=== PATIENT | male | born 1945 | race Caucasian/White ===

== ENCOUNTER 2019-09-29 07:05 | Inpatient (IN) ==
[2019-09-29] MEDS ORDERED: *HR* Propofol 200 MG/20 ML VIAL IVP ONE (07:08)
[2019-09-29] MEDS ORDERED: *HR* FentaNYL (PF) 100 MCG/2 ML VIAL ONE ×2 (07:09→08:26)
[2019-09-29] MEDS ORDERED: *HR* Rocuronium Bromide 50 MG/5 ML VIAL ONE (07:22)
[2019-09-29] MEDS ORDERED: Lidocaine -MPF 1% 5 ML AMPUL ONE (07:22)
[2019-09-29] MEDS ORDERED: Dexamethasone 4 MG/ML VIAL ONE (07:22)
[2019-09-29] MEDS ORDERED: Ondansetron 4 MG/2 ML VIAL ONE (07:22)
[2019-09-29] MEDS ORDERED: Famotidine 20 MG/2 ML VIAL IVP ONE (07:28)
[2019-09-29] MEDS ORDERED: Acetaminophen IV 1,000 MG/100 ML INFUS..BTL IVPB ONE (07:29)
[2019-09-29] MEDS ORDERED: Ringers Solution, Lactated 1,000 ML IVC SCH (07:30)
[2019-09-29] MEDS ORDERED: *HR* OxyCODONE Immed Rel 5 MG TABLET PO PRN (07:57)
[2019-09-29] MEDS ORDERED: Ondansetron 4 MG/2 ML VIAL IVP ONE (07:57)
[2019-09-29] MEDS ORDERED: *HR* Labetalol 20 MG/4 ML SYRINGE IVP PRN (07:57)
[2019-09-29] MEDS ORDERED: *HR* HYDROmorphone PF 0.5 MG/0.5 ML SYRINGE IVP PRN (07:57)
[2019-09-29] MEDS ORDERED: Heparin 1,000 UNITS/500 mL 500 ML ONE (08:08)
[2019-09-29] MEDS ORDERED: 0.9 % Sodium Chloride 500 ML IVC SCH (08:15)
[2019-09-29] MEDS ORDERED: CeFAZolin Syr 2,000MG/20 ML 2,000 MG/20 ML SYRINGE IVPB ONE (08:15)
[2019-09-29] MEDS ORDERED: Lidocaine -MPF 2% 2 ML VIAL ONE (08:16)
[2019-09-29] MEDS ORDERED: *HR* Belladonna Alkaloids/Opium 30 MG RECTAL SUPPOSITORY RC PRN (12:28)
[2019-09-29] MEDS ORDERED: Naloxone 0.4 MG/ML INJ IVP PRN (12:28)
[2019-09-29] MEDS ORDERED: Ondansetron 4 MG/2 ML VIAL IVP PRN (12:28)
[2019-09-29] MEDS: 0.9 % Sodium Chloride 500 ML IVC SCH (14:13)
[2019-09-29] MEDS: ceFAZolin 2,000 MG in 0.9 % Sodium Chloride 100 ML IVPB SCH (15:39)
[2019-09-29] MEDS: *HR* Heparin 5,000 UNIT/ML VIAL SQ SCH (15:41)
[2019-09-29] MEDS: Acetaminophen IV 1,000 MG/100 ML INFUS..BTL IVPB SCH ×2 (16:16→22:01)
[2019-09-30] MEDS: *HR* Heparin 5,000 UNIT/ML VIAL SQ SCH ×2 (01:44→08:43)
[2019-09-30] MEDS: 0.9 % Sodium Chloride 500 ML IVC SCH (01:44)
[2019-09-30] MEDS: ceFAZolin 2,000 MG in 0.9 % Sodium Chloride 100 ML IVPB SCH (01:50)
[2019-09-30] MEDS: Acetaminophen IV 1,000 MG/100 ML INFUS..BTL IVPB SCH (04:02)
[2019-09-30 05:06] LABS: Basophils % 0.3 %; Hematocrit 38.1 % (37.5-50.1); Hemoglobin 12.7 g/dL (12.9-16.9); Immature Granulocytes % 0.3 % (0-4); Lymphocytes # 1.3 K/mcL (0.6-4.6); Lymphocytes % 11.4 %; Mean Corpuscular HGB Conc 33.3 g/dL (31.6-35.5); Mean Corpuscular Hemoglobin 32.5 pg (28.0-33.3); Mean Corpuscular Volume 97.4 fL (83.0-100.0); Mean Platelet Volume 10.7 fL (9.4-12.4); Monocytes % 9.1 %; Neutrophils # 8.7 K/mcL (1.6-8.9); Platelet Count 301 K/mcL (140-400); Red Blood Count 3.91 M/mcL (4.19-5.50); Red Cell Distribution Width 15.6 % (11.5-14.5); Segmented Neutrophils % 78.9 %; White Blood Count 11.1 K/mcL (4.3-11.1)
[2019-09-30 07:29] VITALS: BP 141/85
== END 2019-09-30 10:37 | disposition home or self-care (01) | DRG 658 ==
LOC: SAMDAY 07:05 → 3ANU 13:35
PROVIDERS: ADMIT Urology; ATTEND Urology

== ENCOUNTER 2021-10-07 21:50 | Observation (INO) ==
[2021-10-08] MEDS ORDERED: Naloxone 0.4 MG/ML INJ IVP PRN (02:25)
[2021-10-08] MEDS ORDERED: Ondansetron 4 MG/2 ML VIAL IVP PRN (02:25)
[2021-10-08] MEDS ORDERED: D5% in Water 1,000 ML IVC PRN (02:29)
[2021-10-08] MEDS ORDERED: *HR* Dextrose 50 % in Water (Syg) 50 ML SYRINGE IVP PRN (02:29)
[2021-10-08] MEDS ORDERED: Dextrose 4 GM Chewable Tablets PO PRN ×2 (02:29)
[2021-10-08] MEDS ORDERED: Perflutren Lipid Microsphere 1.3 ML in 0.9 % Sodium Chloride 8.7 ML IVP PRN (02:33)
[2021-10-08] MEDS ORDERED: Nitroprusside 50 MG in D5% in Water 250 ML IVC SCH (02:45)
[2021-10-08] MEDS ORDERED: *HR* LORazepam 0.5 MG TABLET PO ONE (03:16)
[2021-10-08] MEDS: hydrALAZINE 25 MG TABLET PO SCH ×4 (03:23→20:39)
[2021-10-08] MEDS: NIFEdipine XL (24 HR) 30 MG TAB.ER.24 PO SCH ×2 (03:23→09:42)
[2021-10-08] MEDS: Ipratropium/Albuterol Neb 3 ML IH SCH ×6 (05:06→23:45)
[2021-10-08 05:13] LABS: Albumin/Globulin Ratio 1.5 (1.1-2.2); Bilirubin,Total 0.7 mg/dL (0.3-1.0); Calcium 9.1 mg/dL (8.6-10.3); Globulin 2.6 g/dL (2.4-3.5); Magnesium 1.9 mg/dL (1.6-2.6); Phosphorous 3.3 mg/dL (2.7-4.5); Potassium 4.2 mEq/L (3.5-5.1); Total Protein 6.6 g/dL (6.4-8.9)
[2021-10-08 05:16] LABS: Basophils % 0.3 %; Hematocrit 41.5 % (37.5-50.1); Hemoglobin 13.9 g/dL (12.9-16.9); Immature Granulocytes % 0.3 % (0-4); Lymphocytes # 0.5 K/mcL (0.6-4.6); Lymphocytes % 7.1 %; Mean Corpuscular HGB Conc 33.5 g/dL (31.6-35.5); Mean Corpuscular Hemoglobin 31.4 pg (28.0-33.3); Mean Corpuscular Volume 93.9 fL (83.0-100.0); Mean Platelet Volume 10.6 fL (9.4-12.4); Monocytes # 0.1 K/mcL (0.0-1.3); Monocytes % 0.9 %; Neutrophils # 6.4 K/mcL (1.6-8.9); Platelet Count 204 K/mcL (140-400); Prothrombin Time 11.6 Seconds (9.4-12.1); Red Blood Count 4.42 M/mcL (4.19-5.50); Red Cell Distribution Width 14.7 % (11.5-14.5); Segmented Neutrophils % 91.4 %
[2021-10-08 05:19] LABS: Activated Partial Thrombo Time 30.9 Seconds (26.0-36.0)
[2021-10-08 05:49] LABS: Estimated Average Glucose 105 mg/dl; Hemoglobin A1C 5.3 %
[2021-10-08] MEDS: Budesonide/Formoterol 160/4.5 1 PUFF INH IH SCH ×2 (07:52→20:03)
[2021-10-08] MEDS: cefTRIAXone 1,000 MG in 0.9 % Sodium Chloride 10 ML IVPB SCH (09:41)
[2021-10-08] MEDS: Aspirin Enteric Coated 81 MG Tablet PO SCH (09:41)
[2021-10-08] MEDS: Lactobacillus 1 EACH CAP.SPRINK PO SCH ×2 (09:41→20:39)
[2021-10-08] MEDS: Azithromycin 250 MG TABLET PO SCH (09:42)
[2021-10-08] MEDS: Metoprolol XL (24 HR) Succ 50 MG TAB.ER.24H PO SCH (09:42)
[2021-10-08] MEDS: Nicotine 21 MG PATCH.TD24 TD SCH (09:42)
[2021-10-08 11:42] LABS: Adenovirus Not Detected (Not Detect); Bordetella Pertussis Not Detected (Not Detect); Chlamydophila pneumoniae Not Detected (Not Detect); Coronavirus 229E Not Detected (Not Detect); Coronavirus HKU1 Not Detected (Not Detect); Coronavirus NL63 Not Detected (Not Detect); Coronavirus OC43 Not Detected (Not Detect); Human Metapneumovirus Not Detected (Not Detect); Human Rhinovirus/Enterovirus Not Detected (Not Detect); Influenza A Subtype 2009 H1 Not Detected (Not Detect); Influenza B Not Detected (Not Detect); Mycoplasma pneumoniae Not Detected (Not Detect); Parainfluenza Virus 1 Not Detected (Not Detect); Parainfluenza Virus 2 Not Detected (Not Detect); Parainfluenza Virus 3 Not Detected (Not Detect); Parainfluenza Virus 4 Not Detected (Not Detect); Respiratory Syncytial Virus Not Detected (Not Detect); SARS-CoV-2 Not Detected (Not Detect)
[2021-10-08] MEDS: *HR* Heparin 5,000 UNIT/ML VIAL SQ SCH ×2 (14:35→20:40)
[2021-10-08 16:50] LABS: Bacteria,Urine Few per hpf (None-Few); Bilirubin,Urine Negative (Negative); Blood,Urine Negative (Negative); Clarity,Urine Clear (Clear); Color,Urine Light-Yellow (Yellow); Glucose,Urine (UA) Normal (Normal); Hyaline Casts,Urine Few per lpf (None Seen); Ketones,Urine Trace mg/dL (Negative); Leukocyte Esterase,Urine Trace (Negative); Mucus,Urine Few per lpf (None-Few); Nitrite,Urine Negative (Negative); PH,Urine 5.5 pH Units (5.0-8.0); Protein,Urine Trace mg/dL (Neg-Trace); RBC,Urine 0-3 per hpf (0-3); Specific Gravity,Urine 1.018 (1.010-1.025); Squamous Epithelial Cell,Urine Few per hpf (None-Few); Urobilinogen,Urine Normal (Normal)
[2021-10-09] MEDS: Acetaminophen 325 MG TABLET PO PRN ×2 (00:54→20:17)
[2021-10-09] MEDS: Melatonin 3 MG TABLET PO PRN ×2 (00:54→20:17)
[2021-10-09 02:04] LABS: Calcium 8.9 mg/dL (8.6-10.3); Magnesium 1.9 mg/dL (1.6-2.6); Phosphorous 3.5 mg/dL (2.7-4.5); Potassium 3.9 mEq/L (3.5-5.1)
[2021-10-09] MEDS: Ipratropium/Albuterol Neb 3 ML IH SCH ×3 (03:33→11:03)
[2021-10-09] MEDS: Budesonide/Formoterol 160/4.5 1 PUFF INH IH SCH ×2 (07:53→20:43)
[2021-10-09] MEDS: Azithromycin 250 MG TABLET PO SCH (08:17)
[2021-10-09] MEDS: hydrALAZINE 25 MG TABLET PO SCH ×3 (08:17→20:16)
[2021-10-09] MEDS: Lactobacillus 1 EACH CAP.SPRINK PO SCH ×2 (08:17→20:16)
[2021-10-09] MEDS: *HR* Heparin 5,000 UNIT/ML VIAL SQ SCH ×3 (08:17→20:17)
[2021-10-09] MEDS: Nicotine 21 MG PATCH.TD24 TD SCH (08:18)
[2021-10-09] MEDS: Metoprolol XL (24 HR) Succ 50 MG TAB.ER.24H PO SCH (08:18)
[2021-10-09] MEDS: NIFEdipine XL (24 HR) 30 MG TAB.ER.24 PO SCH (08:18)
[2021-10-09] MEDS: cefTRIAXone 1,000 MG in 0.9 % Sodium Chloride 10 ML IVPB SCH (08:18)
[2021-10-09] MEDS: Aspirin Enteric Coated 81 MG Tablet PO SCH (08:18)
[2021-10-09] MEDS ORDERED: Ipratropium/Albuterol Neb 3 ML IH PRN (12:11)
[2021-10-10] MEDS ORDERED: Metoprolol XL (24 HR) Succ 25 MG TAB.ER.24H PO SCH (03:30)
[2021-10-10 05:31] LABS: Calcium 9.4 mg/dL (8.6-10.3); Magnesium 1.9 mg/dL (1.6-2.6)
[2021-10-10] MEDS: *HR* Heparin 5,000 UNIT/ML VIAL SQ SCH (06:27)
[2021-10-10 06:46] VITALS: PULSE 87; TEMP 97.9; O2SAT 93
[2021-10-10] MEDS: Budesonide/Formoterol 160/4.5 1 PUFF INH IH SCH (07:47)
[2021-10-10] MEDS: Metoprolol XL (24 HR) Succ 50 MG TAB.ER.24H PO SCH (07:57)
[2021-10-10] MEDS: Aspirin Enteric Coated 81 MG Tablet PO SCH (07:57)
[2021-10-10] MEDS: Azithromycin 250 MG TABLET PO SCH (07:57)
[2021-10-10] MEDS: Lactobacillus 1 EACH CAP.SPRINK PO SCH (07:57)
[2021-10-10] MEDS: NIFEdipine XL (24 HR) 30 MG TAB.ER.24 PO SCH (07:57)
[2021-10-10] MEDS: Nicotine 21 MG PATCH.TD24 TD SCH (07:58)
[2021-10-10] MEDS: cefTRIAXone 1,000 MG in 0.9 % Sodium Chloride 10 ML IVPB SCH (07:58)
[2021-10-10] MEDS: hydrALAZINE 25 MG TABLET PO SCH (07:59)
[2021-10-10 10:02] VITALS: BP 152/97
[2021-10-11 10:20] LABS: Mycoplasma pneumoniae IgG 0.54 U/L (<=0.09)
== END 2021-10-10 11:35 | disposition home or self-care (01) ==
LOC: 3NENU → SUATTDRO 10-08 01:26
PROVIDERS: ADMIT Internal Medicine; ATTEND Internal Medicine

== ENCOUNTER 2021-11-28 06:11 | Observation (INO) ==
[2021-11-28] MEDS ORDERED: *HR* HYDROcodone/Acet 5/325 mg TABLET PO PRN (10:24)
[2021-11-28] MEDS ORDERED: Acetaminophen 325 MG TABLET PO PRN (10:24)
[2021-11-28] MEDS ORDERED: *HR* OxyCODONE Immed Rel 5 MG TABLET PO PRN (10:24)
[2021-11-28] MEDS ORDERED: Naloxone 0.4 MG/ML INJ IVP PRN (10:24)
[2021-11-28] MEDS ORDERED: Ondansetron 4 MG/2 ML VIAL IVP PRN (10:24)
[2021-11-28] MEDS ORDERED: Perflutren Lipid Microsphere 1.3 ML in 0.9 % Sodium Chloride 8.7 ML IVP PRN (10:34)
[2021-11-28] MEDS ORDERED: *HR* Heparin 5,000 UNIT/ML VIAL IVP PRN ×2 (15:42)
[2021-11-28] MEDS ORDERED: *HR* Heparin 5,000 UNIT/ML VIAL IVP ONE (15:42)
[2021-11-28] MEDS ORDERED: Ipratropium/Albuterol Neb 3 ML IH PRN (15:46)
[2021-11-28] MEDS: Heparin 25,000UNIT/250ML 1/2NS 25,000 UNIT/250 ML IV.SOLN IVC SCH (16:19)
[2021-11-28 16:26] LABS: Hemoglobin 14.2 g/dL (12.9-16.9); Mean Corpuscular HGB Conc 33.8 g/dL (31.6-35.5); Mean Corpuscular Hemoglobin 32.2 pg (28.0-33.3); Mean Corpuscular Volume 95.2 fL (83.0-100.0); Mean Platelet Volume 10.4 fL (9.4-12.4); Platelet Count 204 K/mcL (140-400); Red Blood Count 4.41 M/mcL (4.19-5.50); White Blood Count 7.9 K/mcL (4.3-11.1)
[2021-11-28 16:41] LABS: Heparin anti-factor XA UFH < 0.04 IU/mL (0.30-0.70); Prothrombin Time 11.5 Seconds (9.4-12.1)
[2021-11-28] MEDS: Metoprolol XL (24 HR) Succ 50 MG TAB.ER.24H PO SCH (18:59)
[2021-11-28] MEDS: NIFEdipine XL (24 HR) 30 MG TAB.ER.24 PO SCH (18:59)
[2021-11-28] MEDS: hydrALAZINE 25 MG TABLET PO SCH (19:51)
[2021-11-28] MEDS: Budesonide/Formoterol 160/4.5 1 PUFF INH IH SCH (20:59)
[2021-11-28] MEDS: Nicotine 14 MG PATCH.TD24 TD SCH (23:25)
[2021-11-29] MEDS ORDERED: *HR* Metoprolol 5 MG/5 ML VIAL IVP ONE (03:05)
[2021-11-29 05:38] LABS: Basophils % 0.1 %; Hematocrit 41.9 % (37.5-50.1); Hemoglobin 14.3 g/dL (12.9-16.9); Immature Granulocytes % 0.6 % (0-4); Lymphocytes # 0.9 K/mcL (0.6-4.6); Mean Corpuscular HGB Conc 34.1 g/dL (31.6-35.5); Mean Corpuscular Hemoglobin 31.7 pg (28.0-33.3); Mean Corpuscular Volume 92.9 fL (83.0-100.0); Mean Platelet Volume 11.3 fL (9.4-12.4); Monocytes # 0.9 K/mcL (0.0-1.3); Monocytes % 6.4 %; Neutrophils # 12.3 K/mcL (1.6-8.9); Platelet Count 216 K/mcL (140-400); Red Blood Count 4.51 M/mcL (4.19-5.50); Red Cell Distribution Width 14.1 % (11.5-14.5); Segmented Neutrophils % 86.9 %
[2021-11-29 05:39] LABS: White Blood Count 14.2 K/mcL (4.3-11.1)
[2021-11-29 06:34] LABS: Magnesium 1.8 mg/dL (1.6-2.6); Potassium 4.2 mEq/L (3.5-5.1)
[2021-11-29] MEDS: Budesonide/Formoterol 160/4.5 1 PUFF INH IH SCH ×2 (07:24→20:25)
[2021-11-29] MEDS: Multivit/Ca/Min/Fe/FA 1 TAB TABLET PO SCH (09:30)
[2021-11-29] MEDS: Cholecalciferol (D-3) 1,000 UNIT (25MCG) TABLET PO SCH (09:31)
[2021-11-29] MEDS: Metoprolol XL (24 HR) Succ 50 MG TAB.ER.24H PO SCH (09:31)
[2021-11-29] MEDS: hydrALAZINE 25 MG TABLET PO SCH ×3 (09:31→21:52)
[2021-11-29] MEDS: NIFEdipine XL (24 HR) 30 MG TAB.ER.24 PO SCH (09:31)
[2021-11-29] MEDS: Aspirin Enteric Coated 81 MG Tablet PO SCH (09:32)
[2021-11-29] MEDS: Heparin 25,000UNIT/250ML 1/2NS 25,000 UNIT/250 ML IV.SOLN IVC SCH (16:13)
[2021-11-29] MEDS: Albumin 25% 25gram/100mL 25 GM/100 ML IV.SOLN IVPB SCH ×2 (16:19→23:49)
[2021-11-29] MEDS: Nicotine 14 MG PATCH.TD24 TD SCH (21:52)
[2021-11-30 04:32] LABS: Basophils % 0.4 %; Eosinophils # 0.2 K/mcL (0.0-0.6); Eosinophils % 1.5 %; Hematocrit 38.5 % (37.5-50.1); Hemoglobin 13.1 g/dL (12.9-16.9); Immature Granulocytes % 0.4 % (0-4); Lymphocytes # 1.9 K/mcL (0.6-4.6); Mean Corpuscular Hemoglobin 32.3 pg (28.0-33.3); Mean Corpuscular Volume 95.1 fL (83.0-100.0); Mean Platelet Volume 10.7 fL (9.4-12.4); Monocytes # 0.8 K/mcL (0.0-1.3); Monocytes % 7.5 %; Neutrophils # 8.1 K/mcL (1.6-8.9); Platelet Count 227 K/mcL (140-400); Red Blood Count 4.05 M/mcL (4.19-5.50); Segmented Neutrophils % 73.2 %
[2021-11-30 04:47] LABS: Calcium 8.9 mg/dL (8.6-10.3); Magnesium 1.8 mg/dL (1.6-2.6); Phosphorous 2.6 mg/dL (2.7-4.5)
[2021-11-30 04:59] LABS: Bilirubin,Urine Negative (Negative); Blood,Urine Negative (Negative); Clarity,Urine Clear (Clear); Color,Urine Light-Yellow (Yellow); Glucose,Urine (UA) Normal (Normal); Ketones,Urine Negative (Negative); Leukocyte Esterase,Urine Negative (Negative); Nitrite,Urine Negative (Negative); Protein,Urine 30 mg/dL (Neg-Trace); RBC,Urine 0-3 per hpf (0-3); Specific Gravity,Urine 1.015 (1.010-1.025); Squamous Epithelial Cell,Urine Few per hpf (None-Few); Urobilinogen,Urine Normal (Normal); WBC,Urine 0-3 per hpf (0-3)
[2021-11-30 07:05] VITALS: BP 165/95; PULSE 70; TEMP 97.9
[2021-11-30] MEDS: Budesonide/Formoterol 160/4.5 1 PUFF INH IH SCH (07:07)
[2021-11-30] MEDS: Cholecalciferol (D-3) 1,000 UNIT (25MCG) TABLET PO SCH (08:52)
[2021-11-30] MEDS: Multivit/Ca/Min/Fe/FA 1 TAB TABLET PO SCH (08:52)
[2021-11-30] MEDS: NIFEdipine XL (24 HR) 30 MG TAB.ER.24 PO SCH (08:52)
[2021-11-30] MEDS: hydrALAZINE 25 MG TABLET PO SCH (08:52)
[2021-11-30] MEDS: Aspirin Enteric Coated 81 MG Tablet PO SCH (08:53)
[2021-11-30] MEDS: Metoprolol XL (24 HR) Succ 50 MG TAB.ER.24H PO SCH (08:53)
[2021-11-30 09:59] VITALS: O2SAT 94
== END 2021-11-30 12:00 | disposition home or self-care (01) ==
LOC: 3NENU → SUATTDRO 09:58
PROVIDERS: ADMIT Pharmacist; ATTEND Internal Medicine

== ENCOUNTER 2021-12-13 00:48 | Observation (INO) ==
[2021-12-13] MEDS ORDERED: Naloxone 0.4 MG/ML INJ IVP PRN (04:37)
[2021-12-13] MEDS ORDERED: Acetaminophen 325 MG TABLET PO PRN (04:37)
[2021-12-13] MEDS ORDERED: Ondansetron 4 MG/2 ML VIAL IVP PRN (04:37)
[2021-12-13] MEDS: Metoprolol XL (24 HR) Succ 50 MG TAB.ER.24H PO SCH (08:29)
[2021-12-13] MEDS: Aspirin Enteric Coated 81 MG Tablet PO SCH (08:29)
[2021-12-13] MEDS: hydrALAZINE 25 MG TABLET PO SCH ×2 (08:29→19:43)
[2021-12-13] MEDS: NIFEdipine XL (24 HR) 60 MG TAB.ER.24 PO SCH (08:30)
[2021-12-13] MEDS: Budesonide/Formoterol 160/4.5 1 PUFF INH IH SCH ×2 (10:50→20:29)
[2021-12-13 14:59] LABS: Calcium 9.1 mg/dL (8.6-10.3)
[2021-12-13] MEDS ORDERED: Furosemide 20 MG/2 ML VIAL IVP ONE (15:32)
[2021-12-14 02:07] LABS: Hematocrit 38.7 % (37.5-50.1); Mean Corpuscular HGB Conc 33.6 g/dL (31.6-35.5); Mean Corpuscular Hemoglobin 31.5 pg (28.0-33.3); Mean Corpuscular Volume 93.7 fL (83.0-100.0); Mean Platelet Volume 10.4 fL (9.4-12.4); Platelet Count 244 K/mcL (140-400); Red Blood Count 4.13 M/mcL (4.19-5.50); Red Cell Distribution Width 13.8 % (11.5-14.5); White Blood Count 9.7 K/mcL (4.3-11.1)
[2021-12-14 02:24] LABS: Potassium 3.7 mEq/L (3.5-5.1)
[2021-12-14] MEDS: Metoprolol XL (24 HR) Succ 50 MG TAB.ER.24H PO SCH (07:48)
[2021-12-14] MEDS: Aspirin Enteric Coated 81 MG Tablet PO SCH (07:48)
[2021-12-14] MEDS: hydrALAZINE 25 MG TABLET PO SCH ×4 (07:48→13:57)
[2021-12-14] MEDS: NIFEdipine XL (24 HR) 60 MG TAB.ER.24 PO SCH (07:49)
[2021-12-14] MEDS ORDERED: Furosemide 40 MG/4 ML VIAL IVP SCH (09:00)
[2021-12-14] MEDS ORDERED: Isosorbide MONOnitrate (24 HR) 30 MG TAB.ER.24H PO SCH (09:00)
[2021-12-14] MEDS ORDERED: Furosemide 40 MG TABLET PO SCH (09:00)
[2021-12-14] MEDS: cloNIDine HCL 0.1 MG TABLET PO SCH ×2 (10:31→13:57)
[2021-12-14] MEDS: Budesonide/Formoterol 160/4.5 1 PUFF INH IH SCH (11:04)
[2021-12-14 11:23] VITALS: PULSE 71; TEMP 98.8; O2SAT 96
[2021-12-14 13:28] VITALS: BP 157/80
== END 2021-12-14 14:43 | disposition home or self-care (01) ==
LOC: 2NNU → SUATTDRO 04:24
PROVIDERS: ADMIT Internal Medicine; ATTEND Internal Medicine

== ENCOUNTER 2022-04-22 21:13 | Inpatient (IN) ==
[2022-04-23] MEDS ORDERED: Melatonin 3 MG TABLET PO PRN (00:18)
[2022-04-23] MEDS ORDERED: Acetaminophen 325 MG TABLET PO PRN (00:18)
[2022-04-23] MEDS ORDERED: Ondansetron 4 MG/2 ML VIAL IVP PRN (00:18)
[2022-04-23] MEDS ORDERED: Naloxone 0.4 MG/ML INJ IVP PRN (00:18)
[2022-04-23] MEDS ORDERED: Dextrose Gel 15 GM/37.5 ML TUBE PO PRN ×2 (00:20)
[2022-04-23] MEDS ORDERED: D5% in Water 1,000 ML IVC PRN (00:20)
[2022-04-23] MEDS ORDERED: *HR* Dextrose 50 % in Water (Syg) 50 ML SYRINGE IVP PRN (00:20)
[2022-04-23] MEDS: cloNIDine HCL 0.1 MG TABLET PO SCH ×4 (03:08→21:02)
[2022-04-23 03:11] LABS: Basophils # 0.1 K/mcL (0.0-0.2); Basophils % 0.6 %; Eosinophils # 0.4 K/mcL (0.0-0.6); Eosinophils % 4.2 %; Hematocrit 41.7 % (37.5-50.1); Hemoglobin 13.6 g/dL (12.9-16.9); Immature Granulocytes % 0.3 % (0-4); Lymphocytes # 1.1 K/mcL (0.6-4.6); Lymphocytes % 11.6 %; Mean Corpuscular HGB Conc 32.6 g/dL (31.6-35.5); Mean Corpuscular Hemoglobin 30.4 pg (28.0-33.3); Mean Corpuscular Volume 93.1 fL (83.0-100.0); Mean Platelet Volume 10.5 fL (9.4-12.4); Monocytes % 10.7 %; Platelet Count 208 K/mcL (140-400); Red Blood Count 4.48 M/mcL (4.19-5.50); Red Cell Distribution Width 15.8 % (11.5-14.5); Segmented Neutrophils % 72.6 %; White Blood Count 9.7 K/mcL (4.3-11.1)
[2022-04-23 03:31] LABS: Chol/HDL Ratio 3.1 (0-4.9); Magnesium 1.8 mg/dL (1.6-2.6); Phosphorous 4.2 mg/dL (2.7-4.5); Potassium 4.4 mEq/L (3.5-5.1)
[2022-04-23] MEDS: Ipratropium/Albuterol Neb 3 ML IH PRN ×2 (03:35→18:01)
[2022-04-23 03:36] LABS: Troponin I 0.09 ng/mL (< 0.04)
[2022-04-23] MEDS: *HR* Heparin 5,000 UNIT/ML VIAL SQ SCH ×3 (06:04→21:03)
[2022-04-23] MEDS: Budesonide/Formoterol 160/4.5 1 PUFF INH IH SCH ×2 (07:57→20:15)
[2022-04-23] MEDS: Aspirin Enteric Coated 81 MG Tablet PO SCH (08:22)
[2022-04-23] MEDS: Metoprolol XL (24 HR) Succ 50 MG TAB.ER.24H PO SCH (08:22)
[2022-04-23] MEDS: Multivit/Ca/Min/Fe/FA 1 TAB TABLET PO SCH (08:22)
[2022-04-23] MEDS: Cholecalciferol (D-3) 1,000 UNIT (25MCG) TABLET PO SCH (08:22)
[2022-04-23] MEDS: NIFEdipine XL (24 HR) 60 MG TAB.ER.24 PO SCH (08:23)
[2022-04-23] MEDS: Furosemide 20 MG/2 ML VIAL IVP SCH ×2 (08:23→15:12)
[2022-04-23] MEDS ORDERED: hydrALAZINE 25 MG TABLET PO SCH (09:00)
[2022-04-23] MEDS: hydrALAZINE 25 MG TABLET PO SCH ×2 (15:11→21:01)
[2022-04-24] MEDS: *HR* Heparin 5,000 UNIT/ML VIAL SQ SCH ×2 (05:49→14:45)
[2022-04-24 06:14] LABS: Basophils # 0.1 K/mcL (0.0-0.2); Basophils % 0.5 %; Eosinophils # 0.7 K/mcL (0.0-0.6); Hematocrit 38.7 % (37.5-50.1); Hemoglobin 12.9 g/dL (12.9-16.9); Immature Granulocytes % 0.3 % (0-4); Lymphocytes # 1.4 K/mcL (0.6-4.6); Lymphocytes % 12.1 %; Mean Corpuscular HGB Conc 33.3 g/dL (31.6-35.5); Mean Corpuscular Hemoglobin 30.8 pg (28.0-33.3); Mean Corpuscular Volume 92.4 fL (83.0-100.0); Mean Platelet Volume 10.7 fL (9.4-12.4); Monocytes # 1.2 K/mcL (0.0-1.3); Monocytes % 10.4 %; Neutrophils # 8.1 K/mcL (1.6-8.9); Platelet Count 213 K/mcL (140-400); Red Blood Count 4.19 M/mcL (4.19-5.50); Red Cell Distribution Width 15.6 % (11.5-14.5); Segmented Neutrophils % 70.7 %; White Blood Count 11.5 K/mcL (4.3-11.1)
[2022-04-24 06:33] LABS: Calcium 8.8 mg/dL (8.6-10.3); Potassium 4.1 mEq/L (3.5-5.1)
[2022-04-24] MEDS: Budesonide/Formoterol 160/4.5 1 PUFF INH IH SCH (07:27)
[2022-04-24] MEDS: Metoprolol XL (24 HR) Succ 50 MG TAB.ER.24H PO SCH (09:04)
[2022-04-24] MEDS: Aspirin Enteric Coated 81 MG Tablet PO SCH (09:04)
[2022-04-24] MEDS: hydrALAZINE 25 MG TABLET PO SCH ×2 (09:04→14:45)
[2022-04-24] MEDS: Multivit/Ca/Min/Fe/FA 1 TAB TABLET PO SCH (09:05)
[2022-04-24] MEDS: cloNIDine HCL 0.1 MG TABLET PO SCH ×2 (09:05→14:45)
[2022-04-24] MEDS: Cholecalciferol (D-3) 1,000 UNIT (25MCG) TABLET PO SCH (09:06)
[2022-04-24] MEDS: NIFEdipine XL (24 HR) 60 MG TAB.ER.24 PO SCH (09:06)
[2022-04-24] MEDS: Ipratropium/Albuterol Neb 3 ML IH PRN (11:24)
[2022-04-24 12:13] VITALS: O2SAT 92
[2022-04-24 14:56] VITALS: BP 173/99; PULSE 73; TEMP 97.9
== END 2022-04-24 16:11 | disposition home or self-care (01) | DRG 291 ==
LOC: 2NENU → SUATTDRO 04-23 00:19
PROVIDERS: ADMIT Internal Medicine; ATTEND Internal Medicine

== ENCOUNTER 2022-04-25 11:58 | Inpatient (IN) ==
[2022-04-25] MEDS ORDERED: Mag Hydrox/Al Hydrox/Simeth 30 ML UDC PO PRN (15:38)
[2022-04-25] MEDS ORDERED: Ondansetron ODT 4 MG TAB.RAPDIS SL PRN (15:38)
[2022-04-25] MEDS ORDERED: MOM Conc 10 ML UD.LIQ PO PRN (15:38)
[2022-04-25] MEDS ORDERED: Naloxone 0.4 MG/ML INJ IVP PRN (15:38)
[2022-04-25] MEDS: Furosemide 20 MG TABLET PO SCH (16:27)
[2022-04-25] MEDS: Ipratropium/Albuterol Neb 3 ML IH PRN (20:21)
[2022-04-25] MEDS: Budesonide/Formoterol 160/4.5 1 PUFF INH IH SCH (20:21)
[2022-04-25] MEDS: Famotidine 20 MG TABLET PO SCH (20:50)
[2022-04-25] MEDS: cloNIDine HCL 0.1 MG TABLET PO SCH (20:51)
[2022-04-25] MEDS: hydrALAZINE 25 MG TABLET PO SCH (20:51)
[2022-04-25] MEDS: Melatonin 3 MG TABLET PO PRN (20:52)
[2022-04-26 04:38] LABS: Basophils # 0.1 K/mcL (0.0-0.2); Basophils % 0.6 %; Eosinophils # 0.5 K/mcL (0.0-0.6); Eosinophils % 5.6 %; Hematocrit 37.4 % (37.5-50.1); Hemoglobin 12.5 g/dL (12.9-16.9); Immature Granulocytes % 0.2 % (0-4); Lymphocytes % 10.8 %; Mean Corpuscular HGB Conc 33.4 g/dL (31.6-35.5); Mean Corpuscular Hemoglobin 30.8 pg (28.0-33.3); Mean Corpuscular Volume 92.1 fL (83.0-100.0); Mean Platelet Volume 10.6 fL (9.4-12.4); Neutrophils # 6.8 K/mcL (1.6-8.9); Platelet Count 206 K/mcL (140-400); Red Blood Count 4.06 M/mcL (4.19-5.50); Red Cell Distribution Width 15.5 % (11.5-14.5); Segmented Neutrophils % 71.8 %; White Blood Count 9.4 K/mcL (4.3-11.1)
[2022-04-26 04:52] LABS: Calcium 8.8 mg/dL (8.6-10.3); Potassium 3.6 mEq/L (3.5-5.1)
[2022-04-26] MEDS: Aspirin Enteric Coated 81 MG Tablet PO SCH (09:09)
[2022-04-26] MEDS: cloNIDine HCL 0.1 MG TABLET PO SCH ×3 (09:10→21:04)
[2022-04-26] MEDS: Metoprolol XL (24 HR) Succ 50 MG TAB.ER.24H PO SCH (09:10)
[2022-04-26] MEDS: Furosemide 20 MG TABLET PO SCH ×2 (09:10→21:04)
[2022-04-26] MEDS: hydrALAZINE 25 MG TABLET PO SCH ×3 (09:10→21:04)
[2022-04-26] MEDS: Famotidine 20 MG TABLET PO SCH (09:10)
[2022-04-26] MEDS: NIFEdipine XL (24 HR) 60 MG TAB.ER.24 PO SCH (09:10)
[2022-04-26] MEDS: Budesonide/Formoterol 160/4.5 1 PUFF INH IH SCH ×2 (10:06→22:07)
[2022-04-26 11:22] LABS: % Iron Saturation 12 % (20-55); Iron 36 mcg/dL (65-175); Transferrin 215 mg/dL (203-362)
[2022-04-26] MEDS: Isosorbide MONOnitrate (24 HR) 30 MG TAB.ER.24H PO SCH (14:17)
[2022-04-26] MEDS: *HR* Heparin 5,000 UNIT/ML VIAL SQ SCH (21:04)
[2022-04-26] MEDS: Melatonin 3 MG TABLET PO PRN (21:04)
[2022-04-26] MEDS: Ipratropium/Albuterol Neb 3 ML IH PRN (22:07)
[2022-04-27 01:26] LABS: Basophils # 0.1 K/mcL (0.0-0.2); Basophils % 0.7 %; Eosinophils # 0.7 K/mcL (0.0-0.6); Eosinophils % 6.8 %; Hematocrit 36.7 % (37.5-50.1); Hemoglobin 12.2 g/dL (12.9-16.9); Immature Granulocytes % 0.3 % (0-4); Lymphocytes # 1.2 K/mcL (0.6-4.6); Lymphocytes % 12.3 %; Mean Corpuscular HGB Conc 33.2 g/dL (31.6-35.5); Mean Corpuscular Hemoglobin 30.8 pg (28.0-33.3); Mean Corpuscular Volume 92.7 fL (83.0-100.0); Mean Platelet Volume 11.1 fL (9.4-12.4); Monocytes # 1.1 K/mcL (0.0-1.3); Monocytes % 11.4 %; Neutrophils # 6.8 K/mcL (1.6-8.9); Platelet Count 226 K/mcL (140-400); Red Blood Count 3.96 M/mcL (4.19-5.50); Red Cell Distribution Width 15.2 % (11.5-14.5); Segmented Neutrophils % 68.5 %
[2022-04-27 01:43] LABS: Magnesium 1.9 mg/dL (1.6-2.6); Phosphorous 3.4 mg/dL (2.7-4.5); Potassium 3.9 mEq/L (3.5-5.1)
[2022-04-27] MEDS: Famotidine 20 MG TABLET PO SCH (05:49)
[2022-04-27] MEDS: *HR* Heparin 5,000 UNIT/ML VIAL SQ SCH ×3 (05:49→22:02)
[2022-04-27] MEDS: Budesonide/Formoterol 160/4.5 1 PUFF INH IH SCH ×2 (07:57→20:09)
[2022-04-27] MEDS: Ipratropium/Albuterol Neb 3 ML IH PRN ×2 (07:58→20:09)
[2022-04-27] MEDS: Metoprolol XL (24 HR) Succ 50 MG TAB.ER.24H PO SCH (08:55)
[2022-04-27] MEDS: hydrALAZINE 25 MG TABLET PO SCH ×3 (08:55→20:39)
[2022-04-27] MEDS: Isosorbide MONOnitrate (24 HR) 30 MG TAB.ER.24H PO SCH (08:56)
[2022-04-27] MEDS: Furosemide 20 MG TABLET PO SCH ×2 (08:56→20:38)
[2022-04-27] MEDS: Aspirin Enteric Coated 81 MG Tablet PO SCH (08:56)
[2022-04-27] MEDS: NIFEdipine XL (24 HR) 60 MG TAB.ER.24 PO SCH (08:56)
[2022-04-27] MEDS: cloNIDine HCL 0.1 MG TABLET PO SCH ×3 (08:56→20:39)
[2022-04-27 11:08] LABS: Sodium, Urine 92.6 mEq/L
[2022-04-27] MEDS: carvediloL 6.25 MG TABLET PO SCH (17:26)
[2022-04-28] MEDS ORDERED: *HR* LORazepam 0.5 MG TABLET PO ONE (00:11)
[2022-04-28 02:18] LABS: Basophils # 0.1 K/mcL (0.0-0.2); Basophils % 0.6 %; Eosinophils # 0.4 K/mcL (0.0-0.6); Eosinophils % 4.3 %; Hematocrit 38.3 % (37.5-50.1); Immature Granulocytes % 0.3 % (0-4); Lymphocytes # 0.9 K/mcL (0.6-4.6); Lymphocytes % 9.1 %; Mean Corpuscular HGB Conc 33.9 g/dL (31.6-35.5); Mean Corpuscular Hemoglobin 31.3 pg (28.0-33.3); Mean Corpuscular Volume 92.1 fL (83.0-100.0); Monocytes % 9.3 %; Neutrophils # 7.9 K/mcL (1.6-8.9); Platelet Count 255 K/mcL (140-400); Red Blood Count 4.16 M/mcL (4.19-5.50); Red Cell Distribution Width 15.1 % (11.5-14.5); Segmented Neutrophils % 76.4 %; White Blood Count 10.3 K/mcL (4.3-11.1)
[2022-04-28 02:36] LABS: Calcium 9.2 mg/dL (8.6-10.3); Potassium 4.2 mEq/L (3.5-5.1)
[2022-04-28] MEDS: *HR* Heparin 5,000 UNIT/ML VIAL SQ SCH ×3 (05:04→20:24)
[2022-04-28] MEDS: Famotidine 20 MG TABLET PO SCH (05:04)
[2022-04-28] MEDS ORDERED: Regadenoson 0.4 MG/5 ML SYRINGE IVP ONE (06:15)
[2022-04-28] MEDS: Ipratropium/Albuterol Neb 3 ML IH PRN ×2 (07:54→19:42)
[2022-04-28] MEDS: Budesonide/Formoterol 160/4.5 1 PUFF INH IH SCH ×2 (07:54→19:41)
[2022-04-28] MEDS: carvediloL 6.25 MG TABLET PO SCH ×3 (10:04→17:21)
[2022-04-28] MEDS: hydrALAZINE 25 MG TABLET PO SCH ×3 (10:27→20:24)
[2022-04-28] MEDS: NIFEdipine XL (24 HR) 60 MG TAB.ER.24 PO SCH (10:27)
[2022-04-28] MEDS: Aspirin Enteric Coated 81 MG Tablet PO SCH (10:27)
[2022-04-28] MEDS: Isosorbide MONOnitrate (24 HR) 30 MG TAB.ER.24H PO SCH (10:27)
[2022-04-28] MEDS: Furosemide 20 MG TABLET PO SCH ×2 (10:27→20:24)
[2022-04-28] MEDS: cloNIDine HCL 0.1 MG TABLET PO SCH ×3 (10:28→20:24)
[2022-04-28] MEDS ORDERED: Isosorbide MONOnitrate (24 HR) 30 MG TAB.ER.24H PO ONE (13:39)
[2022-04-28] MEDS ORDERED: *HR* LORazepam 1 MG TABLET PO ONE (20:55)
[2022-04-29 03:30] LABS: Basophils # 0.1 K/mcL (0.0-0.2); Basophils % 0.7 %; Eosinophils # 0.7 K/mcL (0.0-0.6); Eosinophils % 7.7 %; Hematocrit 35.4 % (37.5-50.1); Hemoglobin 11.9 g/dL (12.9-16.9); Immature Granulocytes % 0.2 % (0-4); Lymphocytes # 1.2 K/mcL (0.6-4.6); Mean Corpuscular HGB Conc 33.6 g/dL (31.6-35.5); Mean Corpuscular Hemoglobin 30.9 pg (28.0-33.3); Mean Corpuscular Volume 91.9 fL (83.0-100.0); Mean Platelet Volume 10.5 fL (9.4-12.4); Monocytes # 1.1 K/mcL (0.0-1.3); Monocytes % 11.7 %; Neutrophils # 6.3 K/mcL (1.6-8.9); Platelet Count 255 K/mcL (140-400); Red Blood Count 3.85 M/mcL (4.19-5.50); Red Cell Distribution Width 14.7 % (11.5-14.5); Segmented Neutrophils % 66.7 %; White Blood Count 9.5 K/mcL (4.3-11.1)
[2022-04-29 03:46] LABS: Calcium 8.8 mg/dL (8.6-10.3); Potassium 3.8 mEq/L (3.5-5.1)
[2022-04-29] MEDS: Famotidine 20 MG TABLET PO SCH (05:17)
[2022-04-29] MEDS: *HR* Heparin 5,000 UNIT/ML VIAL SQ SCH ×3 (05:17→21:18)
[2022-04-29] MEDS: Aspirin Enteric Coated 81 MG Tablet PO SCH (07:46)
[2022-04-29] MEDS: Isosorbide MONOnitrate (24 HR) 30 MG TAB.ER.24H PO SCH (07:46)
[2022-04-29] MEDS: carvediloL 6.25 MG TABLET PO SCH ×2 (07:47→16:27)
[2022-04-29] MEDS: Furosemide 20 MG TABLET PO SCH ×2 (07:47→21:17)
[2022-04-29] MEDS: hydrALAZINE 25 MG TABLET PO SCH ×3 (07:47→21:17)
[2022-04-29] MEDS: NIFEdipine XL (24 HR) 60 MG TAB.ER.24 PO SCH (07:47)
[2022-04-29] MEDS: cloNIDine HCL 0.1 MG TABLET PO SCH ×3 (07:47→21:17)
[2022-04-29] MEDS: Ipratropium/Albuterol Neb 3 ML IH PRN ×2 (10:52→19:40)
[2022-04-29] MEDS: Budesonide/Formoterol 160/4.5 1 PUFF INH IH SCH ×2 (10:52→19:40)
[2022-04-29] MEDS ORDERED: Sodium Bicarbonate 75 MEQ in 0.45 % Sodium Chloride 1,000 ML IVC SCH (11:45)
[2022-04-29] MEDS: Melatonin 3 MG TABLET PO PRN (21:17)
[2022-04-29] MEDS ORDERED: Furosemide 40 MG/4 ML VIAL IVP ONE (22:58)
[2022-04-29] MEDS ORDERED: Morphine Sulfate 2 MG/ML SYRINGE IVP ONE (22:59)
[2022-04-30] MEDS: Nitroglycerin 0.4 MG TAB.SUBL SL PRN ×2 (01:05→01:14)
[2022-04-30 01:20] LABS: Hemoglobin 13.2 g/dL (12.9-16.9); Mean Corpuscular HGB Conc 33.8 g/dL (31.6-35.5); Mean Corpuscular Hemoglobin 31.2 pg (28.0-33.3); Mean Corpuscular Volume 92.2 fL (83.0-100.0); Mean Platelet Volume 10.4 fL (9.4-12.4); Platelet Count 265 K/mcL (140-400); Red Blood Count 4.23 M/mcL (4.19-5.50); Red Cell Distribution Width 14.7 % (11.5-14.5); White Blood Count 9.7 K/mcL (4.3-11.1)
[2022-04-30 01:36] LABS: Potassium 4.2 mEq/L (3.5-5.1)
[2022-04-30] MEDS: *HR* Heparin 5,000 UNIT/ML VIAL SQ SCH ×3 (05:26→21:20)
[2022-04-30] MEDS: Famotidine 20 MG TABLET PO SCH (05:26)
[2022-04-30] MEDS: cloNIDine HCL 0.1 MG TABLET PO SCH ×3 (07:27→21:19)
[2022-04-30] MEDS: Furosemide 20 MG TABLET PO SCH ×2 (07:27→21:19)
[2022-04-30] MEDS: Aspirin Enteric Coated 81 MG Tablet PO SCH (07:27)
[2022-04-30] MEDS: carvediloL 6.25 MG TABLET PO SCH ×2 (07:27→17:39)
[2022-04-30] MEDS: Isosorbide MONOnitrate (24 HR) 30 MG TAB.ER.24H PO SCH (07:27)
[2022-04-30] MEDS: hydrALAZINE 25 MG TABLET PO SCH ×3 (07:27→21:19)
[2022-04-30] MEDS: NIFEdipine XL (24 HR) 60 MG TAB.ER.24 PO SCH (07:28)
[2022-04-30] MEDS: Budesonide/Formoterol 160/4.5 1 PUFF INH IH SCH ×2 (08:27→19:41)
[2022-04-30] MEDS: Ipratropium/Albuterol Neb 3 ML IH PRN ×2 (08:28→19:41)
[2022-04-30] MEDS ORDERED: Furosemide 40 MG/4 ML VIAL IVP ONE (11:17)
[2022-04-30] MEDS: Melatonin 3 MG TABLET PO PRN (21:25)
[2022-05-01 02:39] LABS: Basophils # 0.1 K/mcL (0.0-0.2); Basophils % 0.8 %; Eosinophils # 0.5 K/mcL (0.0-0.6); Eosinophils % 6.8 %; Hematocrit 37.3 % (37.5-50.1); Hemoglobin 12.9 g/dL (12.9-16.9); Immature Granulocytes % 0.4 % (0-4); Lymphocytes # 1.2 K/mcL (0.6-4.6); Mean Corpuscular HGB Conc 34.6 g/dL (31.6-35.5); Mean Corpuscular Hemoglobin 31.5 pg (28.0-33.3); Mean Platelet Volume 10.2 fL (9.4-12.4); Monocytes % 12.2 %; Neutrophils # 5.1 K/mcL (1.6-8.9); Platelet Count 275 K/mcL (140-400); Red Cell Distribution Width 14.6 % (11.5-14.5); Segmented Neutrophils % 64.8 %; White Blood Count 7.8 K/mcL (4.3-11.1)
[2022-05-01 02:46] LABS: Prothrombin Time 11.2 Seconds (9.4-12.1)
[2022-05-01 03:05] LABS: Calcium 9.1 mg/dL (8.6-10.3); Potassium 3.6 mEq/L (3.5-5.1)
[2022-05-01] MEDS: Famotidine 20 MG TABLET PO SCH (06:04)
[2022-05-01] MEDS: *HR* Heparin 5,000 UNIT/ML VIAL SQ SCH ×3 (06:05→21:29)
[2022-05-01] MEDS ORDERED: Fluticasone Propionate Nasal 50 MCG/SPRAY BOTTLE NS PRN (06:07)
[2022-05-01] MEDS: cloNIDine HCL 0.1 MG TABLET PO SCH ×3 (09:13→21:31)
[2022-05-01] MEDS: Isosorbide MONOnitrate (24 HR) 30 MG TAB.ER.24H PO SCH (09:13)
[2022-05-01] MEDS: NIFEdipine XL (24 HR) 60 MG TAB.ER.24 PO SCH (09:14)
[2022-05-01] MEDS: Furosemide 20 MG TABLET PO SCH ×2 (09:14→21:31)
[2022-05-01] MEDS: hydrALAZINE 25 MG TABLET PO SCH ×3 (09:14→21:31)
[2022-05-01] MEDS: carvediloL 6.25 MG TABLET PO SCH ×2 (09:14→18:06)
[2022-05-01] MEDS: Aspirin Enteric Coated 81 MG Tablet PO SCH (09:14)
[2022-05-01] MEDS: Budesonide/Formoterol 160/4.5 1 PUFF INH IH SCH ×2 (09:55→21:34)
[2022-05-01] MEDS: Ipratropium/Albuterol Neb 3 ML IH PRN ×2 (09:55→21:34)
[2022-05-01] MEDS: Melatonin 3 MG TABLET PO PRN (21:31)
[2022-05-02 03:02] LABS: Basophils # 0.1 K/mcL (0.0-0.2); Basophils % 0.8 %; Eosinophils # 0.6 K/mcL (0.0-0.6); Eosinophils % 6.8 %; Hematocrit 36.4 % (37.5-50.1); Hemoglobin 12.2 g/dL (12.9-16.9); Immature Granulocytes % 0.4 % (0-4); Lymphocytes # 1.2 K/mcL (0.6-4.6); Lymphocytes % 13.6 %; Mean Corpuscular HGB Conc 33.5 g/dL (31.6-35.5); Mean Corpuscular Hemoglobin 30.9 pg (28.0-33.3); Mean Corpuscular Volume 92.2 fL (83.0-100.0); Mean Platelet Volume 10.8 fL (9.4-12.4); Monocytes % 11.7 %; Neutrophils # 5.7 K/mcL (1.6-8.9); Platelet Count 281 K/mcL (140-400); Red Blood Count 3.95 M/mcL (4.19-5.50); Red Cell Distribution Width 14.3 % (11.5-14.5); Segmented Neutrophils % 66.7 %; White Blood Count 8.5 K/mcL (4.3-11.1)
[2022-05-02 03:23] LABS: Calcium 9.1 mg/dL (8.6-10.3); Potassium 3.8 mEq/L (3.5-5.1)
[2022-05-02] MEDS: *HR* Heparin 5,000 UNIT/ML VIAL SQ SCH ×3 (05:13→20:50)
[2022-05-02] MEDS: Famotidine 20 MG TABLET PO SCH (05:13)
[2022-05-02] MEDS: Budesonide/Formoterol 160/4.5 1 PUFF INH IH SCH ×2 (07:29→20:14)
[2022-05-02] MEDS: Ipratropium/Albuterol Neb 3 ML IH PRN ×2 (07:30→20:14)
[2022-05-02] MEDS: cloNIDine HCL 0.1 MG TABLET PO SCH ×3 (08:28→20:50)
[2022-05-02] MEDS: carvediloL 6.25 MG TABLET PO SCH ×2 (08:28→16:04)
[2022-05-02] MEDS: NIFEdipine XL (24 HR) 60 MG TAB.ER.24 PO SCH (08:28)
[2022-05-02] MEDS: Isosorbide MONOnitrate (24 HR) 30 MG TAB.ER.24H PO SCH (08:29)
[2022-05-02] MEDS: Furosemide 20 MG TABLET PO SCH ×2 (08:29→20:50)
[2022-05-02] MEDS: Aspirin Enteric Coated 81 MG Tablet PO SCH (08:29)
[2022-05-02] MEDS: hydrALAZINE 25 MG TABLET PO SCH ×3 (08:32→20:50)
[2022-05-02 19:41] LABS: Metanephrine, Plasma 0.18 nmol/L (0.00-0.49)
[2022-05-03 03:07] LABS: Hematocrit 37.8 % (37.5-50.1); Hemoglobin 12.9 g/dL (12.9-16.9); Mean Corpuscular HGB Conc 34.1 g/dL (31.6-35.5); Mean Corpuscular Hemoglobin 31.2 pg (28.0-33.3); Mean Corpuscular Volume 91.5 fL (83.0-100.0); Platelet Count 297 K/mcL (140-400); Red Blood Count 4.13 M/mcL (4.19-5.50); Red Cell Distribution Width 14.3 % (11.5-14.5)
[2022-05-03 03:26] LABS: Calcium 9.2 mg/dL (8.6-10.3); Potassium 3.7 mEq/L (3.5-5.1)
[2022-05-03] MEDS: Famotidine 20 MG TABLET PO SCH (06:02)
[2022-05-03] MEDS: *HR* Heparin 5,000 UNIT/ML VIAL SQ SCH ×3 (06:02→20:37)
[2022-05-03] MEDS: Ipratropium/Albuterol Neb 3 ML IH PRN ×2 (07:29→20:26)
[2022-05-03] MEDS: Budesonide/Formoterol 160/4.5 1 PUFF INH IH SCH ×2 (07:29→20:24)
[2022-05-03] MEDS: hydrALAZINE 25 MG TABLET PO SCH ×3 (08:10→20:36)
[2022-05-03] MEDS: NIFEdipine XL (24 HR) 60 MG TAB.ER.24 PO SCH (08:10)
[2022-05-03] MEDS: Furosemide 20 MG TABLET PO SCH ×2 (08:11→20:36)
[2022-05-03] MEDS: Aspirin Enteric Coated 81 MG Tablet PO SCH (08:11)
[2022-05-03] MEDS: carvediloL 6.25 MG TABLET PO SCH ×2 (08:11→16:32)
[2022-05-03] MEDS: Isosorbide MONOnitrate (24 HR) 30 MG TAB.ER.24H PO SCH (08:11)
[2022-05-03] MEDS: cloNIDine HCL 0.1 MG TABLET PO SCH ×3 (08:12→20:36)
[2022-05-03] MEDS ORDERED: CloNIDine Patch 0.2 MG PATCH (WEEKLY) TD SCH (11:45)
[2022-05-03] MEDS: Melatonin 3 MG TABLET PO PRN (20:47)
[2022-05-04] MEDS: *HR* Heparin 5,000 UNIT/ML VIAL SQ SCH ×3 (06:24→21:21)
[2022-05-04] MEDS: Famotidine 20 MG TABLET PO SCH (06:49)
[2022-05-04] MEDS: Budesonide/Formoterol 160/4.5 1 PUFF INH IH SCH ×2 (08:00→21:15)
[2022-05-04] MEDS: Ipratropium/Albuterol Neb 3 ML IH PRN ×2 (08:00→21:15)
[2022-05-04] MEDS: hydrALAZINE 25 MG TABLET PO SCH ×3 (09:57→21:21)
[2022-05-04] MEDS: carvediloL 6.25 MG TABLET PO SCH ×2 (09:57→16:42)
[2022-05-04] MEDS: Aspirin Enteric Coated 81 MG Tablet PO SCH (09:57)
[2022-05-04] MEDS: cloNIDine HCL 0.1 MG TABLET PO SCH ×2 (09:58→21:20)
[2022-05-04] MEDS: Furosemide 20 MG TABLET PO SCH ×2 (09:58→21:20)
[2022-05-04] MEDS: NIFEdipine XL (24 HR) 60 MG TAB.ER.24 PO SCH (09:58)
[2022-05-04] MEDS: Isosorbide MONOnitrate (24 HR) 30 MG TAB.ER.24H PO SCH (09:58)
[2022-05-04 12:12] LABS: Potassium 3.6 mEq/L (3.5-5.1)
[2022-05-04 13:54] LABS: Bilirubin,Urine Negative (Negative); Blood,Urine Negative (Negative); Clarity,Urine Clear (Clear); Color,Urine Light-Yellow (Yellow); Glucose,Urine (UA) Normal (Normal); Ketones,Urine Negative (Negative); Leukocyte Esterase,Urine Negative (Negative); Nitrite,Urine Negative (Negative); Protein,Urine Negative (Neg-Trace); Specific Gravity,Urine 1.011 (1.010-1.025); Urobilinogen,Urine Normal (Normal)
[2022-05-04] MEDS ORDERED: CloNIDine Patch 0.2 MG PATCH (WEEKLY) TD SCH (15:00)
[2022-05-04 15:07] LABS: Protein/Creatinine Ratio,Urine 0.21 mg/mg (0.00-0.20)
[2022-05-04 16:45] LABS: Calcium 9.1 mg/dL (8.6-10.3); Potassium 3.9 mEq/L (3.5-5.1)
[2022-05-04] MEDS ORDERED: Acetaminophen 325 MG TABLET PO PRN (18:27)
[2022-05-04] MEDS: Melatonin 3 MG TABLET PO PRN (21:22)
[2022-05-05] MEDS: Famotidine 20 MG TABLET PO SCH (06:13)
[2022-05-05] MEDS: *HR* Heparin 5,000 UNIT/ML VIAL SQ SCH (06:14)
[2022-05-05 06:57] VITALS: O2SAT 97
[2022-05-05] MEDS: Budesonide/Formoterol 160/4.5 1 PUFF INH IH SCH (07:28)
[2022-05-05] MEDS: Ipratropium/Albuterol Neb 3 ML IH PRN (07:28)
[2022-05-05 09:08] LABS: Calcium 9.3 mg/dL (8.6-10.3); Potassium 3.6 mEq/L (3.5-5.1)
[2022-05-05] MEDS: Isosorbide MONOnitrate (24 HR) 30 MG TAB.ER.24H PO SCH (09:28)
[2022-05-05] MEDS: hydrALAZINE 25 MG TABLET PO SCH (09:28)
[2022-05-05] MEDS: Aspirin Enteric Coated 81 MG Tablet PO SCH (09:28)
[2022-05-05] MEDS: cloNIDine HCL 0.1 MG TABLET PO SCH (09:28)
[2022-05-05] MEDS: NIFEdipine XL (24 HR) 60 MG TAB.ER.24 PO SCH (09:28)
[2022-05-05] MEDS: Furosemide 20 MG TABLET PO SCH (09:29)
[2022-05-05] MEDS: carvediloL 6.25 MG TABLET PO SCH (09:29)
[2022-05-05 10:48] VITALS: BP 179/93; PULSE 62; TEMP 99.4
== END 2022-05-05 14:05 | disposition home or self-care (01) | DRG 291 ==
LOC: 2NENU → SUATTDRO 13:59
PROVIDERS: ADMIT Hospitalist; ATTEND Internal Medicine